=== PATIENT | male | born 1955 | race African-American/Black ===

== ENCOUNTER → 2017-01-29 | Day surgery (SDC) | payer OTHER ==
[~2017-01-29] MED LIST: ALEVE220 M1 PO; HYDROCHLOROTHIA25 MG PO; LORTAB 5-325 M1 EACH PO; MULTI VITAMIN1 EACH PO; NORVASC10 MG PO; SKIN CREAM; TRAMADOL HCL50 M1 PO
--- NOTE | ~2017-01-29 | OR ---
Unit #: [id number] #: [id number] Patient: MILADY LERMA [id number] [address] [address] [id number] MR#: [id number] NAME: MILADY LERMA ROOM: Date of Procedure: 01/29/2017 Admission Date: 01/29/2017 Surgeon: Doyle Farmer M.D. : 1955 Attending Physician: Doyle Farmer M.D. Referring Physician: Doyle Farmer M.D. Primary Care Physician: [facility] OPERATIVE REPORT PROCEDURE PERFORMED Colonoscopy to cecum. INDICATIONS FOR PROCEDURE Average risk for colorectal cancer. MEDICATIONS Monitored anesthesia. POSTOPERATIVE FINDINGS Good prep. Normal exam to cecum. No polyps, masses, or colitis. PLAN Repeat colonoscopy in 10 years. DESCRIPTION OF PROCEDURE The patient was explained of the procedure, risks, and benefits along with risks and benefits of anesthesia. He was brought to the endoscopy room. Propofol anesthesia was given. Rectal exam was done, which was normal. Colonoscope was lubricated, passed up the rectum, advanced under direct vision all the way to cecum. Cecum was identified by ileocecal valve and appendiceal orifice. I then started to pull the scope out carefully looking. No polyps, masses, or colitis. Mucosa was normal and healthy. I retroflexed in the rectum to look at the perianal area, small hemorrhoids noted. Gently, the scope was pulled out. He tolerated it well. Dictated by... Guille Velasquez/mehrdad TD: 02/04/2017 11:48 JOB #: [id number] Unit #: [id number] #: [id number] Patient: MILADY LERMA OPERATIVE REPORT Page 1 of 1 X Doyle Farmer MD X PROCEDURE OPERATIVE NOTE
== END | disposition home or self-care (01) ==
LOC: COPS 09:53
DX: Z12.11 Encounter for screening for malignant neoplasm of colon (principal); K64.9 Unspecified hemorrhoids; M19.90 Unspecified osteoarthritis, unspecified site; I10 Essential (primary) hypertension; Z79.899 Other long term (current) drug therapy; Z98.41 Cataract extraction status, right eye; Z98.42 Cataract extraction status, left eye
CPT/HCPCS: J2250